=== PATIENT | male | born 1990 | race American Indian/Alaskan Native ===

== ENCOUNTER 2017-03-25 01:30 | Emergency (ER) | payer SELFPAY ==
[2017-03-25] MEDS ORDERED: TETRACAINE 0.5% OD ONE (03:42)
[2017-03-25] MEDS ORDERED: FUL-GLO OP ONE (03:43)
[2017-03-25] MEDS ORDERED: TYLENOL PO ONE (04:27)
[2017-03-25] MEDS ORDERED: TYLENOL ONE (04:30)
--- NOTE | 2017-03-25 04:39 | Emergency Department Report ---
<HAZELJUANJOSEHUBER White - Last Filed: 03/25/17 06:48> ED Eye Problem HPI - General Chief complaint: Eye Problems Stated complaint: LEFT EYE PAIN Time Seen by Provider: 03/25/17 04:13 Source: patient Mode of arrival: Ambulatory Limitations: No Limitations - History of Present Illness Initial comments: Patient is a 26-year-old male who presents to ED complaining of right eye pain and seen white light 1 day. Patient's history 11:30 this pm last night he was Spring soccer and someone kicked a soccer ball into his right eye. Patient states since then he's had had pain and throbbing sharp headache on the right side. Patient states this is right leg on the right side. Patient states he can't really see out of that eye. MD chief complaint: eye pain, eye redness, eye injury, vision change - Related Data Home Medications Medication Instructions Recorded Confirmed Last Taken No Known Home Medications [No 03/25/17 03/25/17 Unknown Reported Home Medications] Allergies Allergy/AdvReac Type Severity Reaction Status Date / Time No Known Allergies Allergy Unverified 03/25/17 03:12 ED Review of Systems ROS: Stated complaint: LEFT EYE PAIN Other details as noted in HPI Constitutional: denies: chills, fever Eyes: eye pain, eye discharge (clear, watery), vision change ENT: denies: ear pain, throat pain, dental pain, hearing loss Respiratory: denies: cough, shortness of breath, wheezing Cardiovascular: denies: chest pain, palpitations Endocrine: no symptoms reported Gastrointestinal: denies: abdominal pain, nausea, diarrhea Genitourinary: denies: urgency, dysuria Musculoskeletal: denies: back pain, joint swelling, arthralgia Skin: denies: rash, lesions Neurological: denies: headache, weakness, paresthesias Psychiatric: denies: anxiety, depression Hematological/Lymphatic: denies: easy bleeding, easy bruising ED Past Medical Hx - Past Medical History Previous Medical History?: No - Surgical History Past Surgical History?: No - Social History Smoking Status: Never Smoker Substance Use Type: None - Medications Home Medications: Home Medications Medication Instructions Recorded Confirmed Last Taken Type No Known Home Medications [No 03/25/17 03/25/17 Unknown History Reported Home Medications] ED Physical Exam - General Limitations: No Limitations General appearance: alert, in no apparent distress - Head Head exam: Present: atraumatic, normocephalic - Eye Eye exam: Present: normal appearance, EOMI, conjunctival injection. Absent: PERRL (right eye pupil non reactive 4mm), periorbital swelling, periorbital tenderness Pupils: Present: unequal - Expanded Eye Exam Expanded Eyelids: Normal Inspection: Left, Erythema: Right Pupils: Regular, Round: Bilateral, Reactive: Left (Right NOn reactive to light) Sclera/Conjunctival: Normal Inspection: Left, Injection: Right Visual acuity (L) = 20/: 40 With correction: No IOP (R) in mmH IOP measured with: Tonopen - ENT ENT exam: Present: mucous membranes moist - Neck Neck exam: Present: normal inspection. Absent: tenderness, full ROM - Respiratory Respiratory exam: Present: normal lung sounds bilaterally. Absent: respiratory distress, wheezes, rales - Cardiovascular Cardiovascular Exam: Present: regular rate, normal rhythm. Absent: systolic murmur, diastolic murmur, rubs, gallop - GI/Abdominal GI/Abdominal exam: Present: soft, normal bowel sounds - Rectal Rectal exam: Present: deferred - Extremities Exam Extremities exam: Present: normal inspection - Back Exam Back exam: Present: normal inspection - Neurological Exam Neurological exam: Present: alert, oriented X3, normal gait - Psychiatric Psychiatric exam: Present: normal affect, normal mood - Skin Skin exam: Present: warm, dry, intact, normal color. Absent: rash ED Course Vital Signs 03/25/17 03/25/17 03/25/17 02:32 03:06 04:38 Temperature 98.4 F 98.4 F Pulse Rate 62 61 Respiratory 18 18 18 Rate Blood Pressure 127/69 127/69 Blood Pressure [Left] O2 Sat by Pulse 98 98 Oximetry 03/25/17 03/25/17 05:55 06:21 Temperature Pulse Rate 64 Respiratory 18 18 Rate Blood Pressure Blood Pressure 116/63 [Left] O2 Sat by Pulse 98 98 Oximetry - Reevaluation(s) Reevaluation #1: Patient is sleeping and resting in the ED bed. He states pain is minimized. Patient now has vision in the right eye. His vision is intact. Pupils single above 5 mm dilated and non- reactive to light 03/25/17 05:30 - Consultations Consultation #1: Transfer line at [facility] was contacted to speak to a ophthalmology. Waiting call back from [facility] ophthalmology 03/25/17 05:[address] Wade ophthalmology ER attending division operations specialist at [facility]. Dr. Wade states that patient should be transported for evaluation at [facility]. Patient is awaiting transport to be transported to [facility]. 03/25/17 06:32 ED Medical Decision Making - Radiology Data Radiology results: report reviewed, image reviewed FINAL REPORT PROCEDURE: CT HEAD/BRAIN WO CON TECHNIQUE: Computerized tomography of the head was performed without contrast material. HISTORY: edmondson COMPARISON: No prior studies are available for comparison. FINDINGS: Skull and scalp: Normal. Paranasal sinuses: Normal. Ventricles and subarachnoid spaces: Normal. Cerebrum: No evidence of hemorrhage, acute infarction or mass . Cerebellum and brainstem: No evidence of hemorrhage, acute infarction or mass. Vasculature: Normal. Comments: None. IMPRESSION: Normal Examination Transcribed By: CO Dictated By: ANGEL MATA MD Electronically Authenticated By: ANGEL MATA MD Signed Date/Time: 03/25/17131 FINAL REPORT PROCEDURE: CT FACIAL BONES WO CON TECHNIQUE: Computerized tomography of the facial bones and soft tissues with axial and coronal sections performed from the cranial aspect of the frontal sinuses to the caudal portion of the mandible without contrast material. HISTORY: soccerball to eye- right eye pain/edmondson COMPARISON: No prior studies are available for comparison. FINDINGS: Bones: No significant abnormality. Paranasal sinuses: Clear. Soft tissues: No significant abnormality. Other: None. IMPRESSION: Normal Examination Transcribed By: CO Dictated By: ANGEL MATA MD Electronically Authenticated By: ANGEL MATA MD Signed Date/Time: 03/25/17 013 - Medical Decision Making 26-year-old male presents with right eye pain status post injury ED course: CT of the facial bones, CT of the head obtained. Exam shows). Evaluation than about 5-6 mm nonreactive to light. No Signs of corneal abrasion Visual acuity test of the right eye attempted prior to transfer patient states blurry and could not make out later on the vision chart All to do my examination close range patient was able to detect how many fingers were held up against his face with the left eye covered. Patient is going to be transferred to [facility]. Vital signs are normal, patient is in no acute or respiratory distress Critical care attestation.: If time is entered above; I have spent that time in minutes in the direct care of this critically ill patient, excluding procedure time. ED Disposition Clinical Impression: Acute right eye pain Eye injury, non-penetrating Qualifiers: Encounter type: initial encounter Laterality: right Qualified Code(s): S05.91XA - Unspecified injury of right eye and orbit, initial encounter Disposition: DC/TX-70 ANOTHER TYPE HLTHCARE Is pt being admited?: No Does the pt Need Aspirin: No Condition: Stable Referrals: JOEL WAKEFIELD MD [Primary Care Provider] - 3-5 Days <JOMAR KEARNEY - Last Filed: 03/25/17 20:17> ED Course - Reevaluation(s) Reevaluation #2: 03/25/17 20:12 I examined Mr. Wilkins, he is a 26 years old male who was playing soccer this evening when he was hit with a soccer ball in his right eye. Patient is complaining of right eye pain and difficulty with vision especially the right eye. Patient does have a 4 mm ,dilated and non-reactive to light. CT scan of the head and orbit with no acute finding. I will transfer patient to [facility] to be seen by cellophane tester. ED Disposition Is pt being admited?: No
--- NOTE | 2017-03-25 05:34 | Cat Scan Report ---
FINAL REPORT PROCEDURE: CT HEAD/BRAIN WO CON TECHNIQUE: Computerized tomography of the head was performed without contrast material. HISTORY: edmondson COMPARISON: No prior studies are available for comparison. FINDINGS: Skull and scalp: Normal. Paranasal sinuses: Normal. Ventricles and subarachnoid spaces: Normal. Cerebrum: No evidence of hemorrhage, acute infarction or mass . Cerebellum and brainstem: No evidence of hemorrhage, acute infarction or mass. Vasculature: Normal. Comments: None. IMPRESSION: Normal Examination
--- NOTE | 2017-03-25 05:36 | Cat Scan Report ---
FINAL REPORT PROCEDURE: CT FACIAL BONES WO CON TECHNIQUE: Computerized tomography of the facial bones and soft tissues with axial and coronal sections performed from the cranial aspect of the frontal sinuses to the caudal portion of the mandible without contrast material. HISTORY: soccerball to eye- right eye pain/edmondson COMPARISON: No prior studies are available for comparison. FINDINGS: Bones: No significant abnormality. Paranasal sinuses: Clear. Soft tissues: No significant abnormality. Other: None. IMPRESSION: Normal Examination
[2017-03-25 05:56] VITALS: BP 116/63
== END 2017-03-25 09:01 | disposition other institution (70) ==
LOC: ED 01:30
DX: S05.91XA Unspecified injury of right eye and orbit, initial encounter (principal); W21.02XA Struck by soccer ball, initial encounter; Y93.66 Activity, soccer; Y99.8 Other external cause status; Y92.89 Other specified places as the place of occurrence of the external cause
CPT/HCPCS: 70450; 70486